=== PATIENT | male | born 1980 | race Caucasian/White ===

== ENCOUNTER 2017-04-18 03:35 | Inpatient (IN) | payer OTHER ==
--- NOTE | ~2017-04-18 | CO ---
Unit #: [id number] #: [id number] Patient: RUTH ALEJANDRE [id number] [address] [address] [id number] I MR#: [id number] NAME: RUTH ALEJANDRE ROOM: 217 Age: 36 Sex: M Admission Date: 04/18/2017 : 1980 Attending Physician: Janett Aldrich M.D. Consultation Date: 04/18/2017 CONSULTATION REPORT PRIMARY REASON FOR CONSULTATION Cellulitis of the right hand. HISTORY OF PRESENT ILLNESS The patient is a 36-year-old gentleman, who had a possible insect bite to his right middle finger. This started the day prior to admission. He has had quite a bit of swelling, erythema, and mild pain. He had a previous episode of the same hand, different finger, about two years ago, which he believes was also occurred after an insect bite. This did resolve without surgery. PAST MEDICAL HISTORY As above. He has no chronic medical illnesses. MEDICATIONS See his MAR. ALLERGIES To penicillin. REVIEW OF SYSTEMS A 10-point review is performed. This is negative other than what was already listed in the history of present illness. SOCIAL HISTORY He is a smoker. He denies alcohol or drug abuse. FAMILY HISTORY Noncontributory. PHYSICAL EXAMINATION GENERAL: He is alert, in no apparent distress. VITAL SIGNS: Temperature is 98.4, pulse 110, respirations are 15, blood pressure 146/80, and he is 100% saturated on room air. HEENT: Pupils are equal and round. Extraocular motions are intact. NECK: Supple without adenopathy. HEART: Regular rate and rhythm. LUNGS: Clear to auscultation anteriorly. ABDOMEN: Soft, benign, nontender, and nondistended. EXTREMITIES: His right hand is markedly edematous on the dorsum of the little finger on the proximal phalange, there appears to be a small bite wound. There is no drainage, no purulence, or fluctuance. There is cellulitis and swelling of nearly the entire hand and all the fingers. Unit #: [id number] #: [id number] Patient: RUTH ALEJANDRE ASSESSMENT AND PLAN The patient with cellulitis of right hand, likely secondary to insect bite versus trauma. There is no abscess or purulence at this time. We will continue to follow with you. The patient's antibiotics that he is currently on are appropriate. Dictated by... [place] Sam/ksenia TD: 04/18/2017 12:22 JOB #: [id number] CONSULTATION REPORT Page 1 of 1 X Kaushal Jalloh X CONSULTATION REPORT
--- NOTE | ~2017-04-18 | CR142 ---
[facility] RADIOLOGY TEXT RESULTS PATIENT: RUTH ALEJANDRE LOCATION: [facility] : [birth year] UNIT #: [id number] AGE: [address]: Janett Aldrich MD SEX: M ORDER DR: [id number] [address] [address] [id number] I MR#: [id number] Acc #: [id number] NAME: RUTH ALEJANDRE : 1980 SEX: M STUDY DATE/TIME: 04/18/2017 4:27 UNIT: [facility] ROOM: [facility] STUDY DESCRIPTION: CR Hand Min 3 Views Rt Attending Physician: Janett Aldrich M.D. Ordering Physician: Rudy Diallo M.D. Primary Care Physician: Primary Care Physician No MEDICAL IMAGING REPORT This report is preliminary unless electronic signature is present EXAM Right hand series INDICATION Right hand pain and swelling since . PROCEDURE 3 views of the right hand COMPARISON None FINDINGS Soft tissue swelling along the dorsum of the hand with two small radiodense foreign bodies, linear configuration measuring approximately 3.0 mm. No acute bone injury. IMPRESSION Significant soft tissue swelling, particularly along the dorsum of the hand. There are 2 approximately 3.0 mm linear radiodense foreign bodies in the dorsal soft tissues overlying the metacarpal region. Dictated by... Rudy Black M.D. THIS IS AN ELECTRONICALLY VERIFIED REPORT Rudy Black M.D. at 04/18/2017 9:58 PM TAYLOR/sariah TD: 04/18/2017 10:23 JOB #: [id number] MEDICAL IMAGING REPORT [facility] RADIOLOGY TEXT RESULTS PATIENT: RUTH ALEJANDRE LOCATION: [facility] : [birth year] UNIT #: [id number] AGE: [address]: Janett Aldrich MD SEX: M ORDER DR: Page 1 of 1 COPY
--- NOTE | ~2017-04-18 | HP ---
Unit #: [id number] #: [id number] Patient: RUTH ALEJANDRE [id number] [address] [address] [id number] I MR#: [id number] NAME: RUTH ALEJANDRE ROOM: 217 Age: 36 Sex: M Admission Date: 04/18/2017 : 1980 Attending Physician: Janett Aldrich M.D. Primary Care Physician: No Primary Care Physician HISTORY AND PHYSICAL CHIEF COMPLAINT Right hand pain and swelling. HISTORY OF PRESENT ILLNESS This is a 36 year old with history of previous right hand abscess admitted because of right hand swelling. According to him, it started one day prior to admission. He thinks it is a possible insect bite to the right middle finger. It is getting worse. Pain is currently 6/10 in intensity. Radiating to his wrist and forearm. He also noticed the hand to be swollen for one day in duration. No fever. No chills. No nausea. No vomiting. No diarrhea. No constipation. No abdominal pain. No leg swelling. No skin rash. Patient denies IV drug usage. PAST MEDICAL HISTORY History of cellulitis and abscess right hand in 2015 needing I and D. ALLERGIES "None." MEDICATIONS None. SOCIAL HISTORY Smokes occasionally. No alcohol. No IV drugs. REVIEW OF SYSTEMS No headache. No visual changes. He does complain of occasional tingling and numbness over the right upper extremity. Currently he denies it. Reviewed 12-point system with him, which is negative except as in the HPI. PHYSICAL EXAMINATION VITAL SIGNS: Temperature 98.4, pulse 110, respirations 15. GENERAL EXAMINATION: A 36 year old sitting on bed, not in acute distress, able to provide history. Alert, oriented x3. EYES: Pupils equally reactive to light and accommodation. NECK: Supple. HEART: S1, S2 heard. Regular rhythm. No murmurs. RESPIRATORY: Lungs are clear to auscultation. No crackles. No rhonchi. ABDOMEN: Soft, nontender. Bowel sounds are present. EXTREMITIES: Lower extremities have no edema. Right upper extremity hand shows swelling. There is erythema and open wound in the middle finger. Also, multiple small wounds present in his bilateral upper extremities. NEUROLOGIC: No focal neurologic deficits. Unit #: [id number] #: [id number] Patient: RUTH ALEJANDRE DIAGNOSTIC STUDIES LAB DATA: Sodium 134, potassium 3.8, creatinine 0.8. WBC 17.9, hemoglobin 14.1, platelets 225. ASSESSMENT A 36 year old admitted because of right hand pain and swelling. PLAN 1. Right hand cellulitis likely abscess, possible insect bite. Patient was started on vancomycin and clindamycin. "Patient is allergic to penicillin." Patient is seen by [facility]. He told to continue with antibiotics for now. Possible I and D in the a.m. if does not get better. Continue with morphine and Lortab for pain. 2. Mild hyponatremia. Monitor. 3. Pepcid 20 mg p.o. b.i.d. for GI prophylaxis and Lovenox 40 subcu daily for DVT prophylaxis. Dictated by [place] Lyle/aron TD: 04/18/2017 09:37 JOB #: [id number] HISTORY AND PHYSICAL Page 1 of 1 X Janett Aldrich MD X HISTORY AND PHYSICAL
[2017-04-18 04:28] LABS: BASOPHIL% 0.2 % (0-2.5); EOSINOPHIL# 0.4 X10e3 (0-0.7); HEMATOCRIT 43.3 % (38.0-50.0); HEMOGLOBIN 14.1 gm/dL (13.0-16.0); LYMPHOCYTE# 1.5 X10e3 (1.0-3.5); LYMPHOCYTE% 8.1 % (17.0-45.0); MEAN CELL VOLUME 93.9 FL (83-96); MEAN CORPUSCULAR HEMOGLOBIN 30.5 PG (28-34); MEAN CORPUSCULAR HGB CONC 32.5 g/dL (30-36); MEAN PLATELET VOLUME 7.2 FL (6.5-11.5); MONOCYTE# 1.7 X10e3 (0-1.0); MONOCYTE% 9.2 % (3.0-12.0); NEUTROPHIL# 14.4 X10e3 (1.5-7.1); NEUTROPHIL% 80.5 % (40-75); PLATELET COUNT 225 X10e3 (140-420); RED BLOOD COUNT 4.61 X10e (3.90-5.60); RED CELL DISTRIBUTION WIDTH 14.6 % (11.0-15.5); WHITE BLOOD COUNT 17.9 X10e3 (4.0-10.5)
[2017-04-18 04:30] LABS: DIFF IND YES
[2017-04-18 04:45] LABS: BUN/CREATININE RATIO 21.25; CALCIUM SERUM 8.7 mg/dL (8.4-10.2); CREATININE SERUM 0.8 mg/dL (0.6-1.4); PLATELET ESTIMATE NORMAL (NORMAL); POTASSIUM 3.8 mmol/L (3.5-5.1)
[2017-04-18] MEDS ORDERED: NO MEDICATIONS (07:28)
== END 2017-04-18 18:05 | disposition left against medical advice (07) | DRG 603 ==
LOC: CED 03:35 → C2A 05:12 → CEDOF 05:12 → C2A 06:27
PROVIDERS: Emergency Medicine
DX: L03.113 Cellulitis of right upper limb (principal); E87.1 Hypo-osmolality and hyponatremia; S60.561A Insect bite (nonvenomous) of right hand, initial encounter; Z72.0 Tobacco use; Z88.0 Allergy status to penicillin
CPT/HCPCS: 36415; 73130; 80048; 85025; 87040; 96365; 96366; 99285; J1650; J2270; J3370